=== PATIENT | male | born 1990 | race Asian ===

== ENCOUNTER 2017-03-19 22:54 | Inpatient (IN) | payer OTHER ==
[~2017-03-19] VITALS: Ht 172.7 cm; Wt 73.0 kg
[2017-03-19 23:12] VITALS: Ht 172.7 cm; Wt 73.0 kg
[2017-03-20 03:15] LABS: PLATELET COUNT 167 x10^3mcL (130-400); RED CELL DISTRIBUTION WIDTH 12.4 % (11.5-14.5)
[2017-03-20 03:19] LABS: BASOPHIL % 0 % (0-2)
[2017-03-20 03:25] LABS: CALCIUM 8.4 mg/dL (8.5-10.1); CARBON DIOXIDE 23.5 mmol/L (21-32); CHLORIDE SERUM 102 mmol/L (98-107); GFR1 > 60 mL/min; GLUCOSE SERUM 117 mg/dL (74-106); POTASSIUM SERUM 3.6 mmol/L (3.5-5.1); SODIUM SERUM 136 mmol/L (136-145)
[2017-03-20 03:29] LABS: ALBUMIN 3.8 g/dL (3.4-5.0); ALKALINE PHOSPHATASE 51 U/L (46-116); ALT/SGPT 29 U/L (16-63); AST/SGOT 19 U/L (15-37); BILIRUBIN TOTAL 1.31 mg/dL (0.20-1.00); LIPASE 75 IU/L (73-393); TOTAL PROTEIN, SERUM 7.1 g/dL (6.4-8.2)
[2017-03-20 07:53] LABS: MAGNESIUM 2.1 mg/dL (1.8-2.4); PHOSPHOROUS 1.8 mg/dL (2.5-4.9); T3 TOTAL 0.56 ng/mL
[2017-03-20 07:54] LABS: CHOLESTEROL/HDL RATIO 2.5
[2017-03-20 08:22] LABS: FREE T4 1.04 ng/dL (0.76-1.46); FREE THYROXINE INDEX 2.4 ug/dL (1.4-4.5); T4(THYROXINE) 6.7 ug/dL (4.7-13.3)
[2017-03-20 10:43] VITALS: BP 126/71
[2017-03-20 11:28] VITALS: BP 126/71
[2017-03-20 12:18] VITALS: BP 128/79
[2017-03-20 16:33] VITALS: BP 112/69
[2017-03-20 16:47] LABS: UA SPECIFIC GRAVITY <=1.005 (1.005-1.035); microscopic required? YES; urine erythrocyte 2+ (NEGATIVE)
[2017-03-20 16:57] LABS: AMPHETAMINE QUAL UR NONE DETECTED (NEG <=1000)
[2017-03-20 21:10] VITALS: BP 104/53
[2017-03-21 04:43] VITALS: BP 95/50
[2017-03-21 06:27] LABS: BASOPHIL % 0.1 % (0-2); PLATELET COUNT 149 x10^3mcL (130-400); RED CELL DISTRIBUTION WIDTH 12.4 % (11.5-14.5)
[2017-03-21 06:55] LABS: CALCIUM 8.1 mg/dL (8.5-10.1); CARBON DIOXIDE 26.6 mmol/L (21-32); CHLORIDE SERUM 106 mmol/L (98-107); CREATININE SERUM 0.9 mg/dL (0.7-1.3); GFR1 > 60 mL/min; GLUCOSE SERUM 118 mg/dL (74-106); MAGNESIUM 2.4 mg/dL (1.8-2.4); POTASSIUM SERUM 4.2 mmol/L (3.5-5.1); SODIUM SERUM 141 mmol/L (136-145)
[2017-03-21 08:00] VITALS: BP 104/64
[2017-03-21] MEDS ORDERED: APAP/HYDROCODON1 T13 PO (15:38)
[2017-03-21] MEDS ORDERED: COL100 PO (15:39)
[2017-03-21 16:20] VITALS: BP 104/64
[2017-03-21 16:28] VITALS: BP 104/64
[2017-03-21 17:48] VITALS: BP 109/61
[2017-03-21] MEDS ORDERED: IBUPROFEN800 MG PO (17:55)
== END 2017-03-21 18:28 | disposition home or self-care (01) | DRG 343 ==
LOC: ED 22:54 → DU 03-20 06:54 → MU 03-20 11:05
PROVIDERS: Emergency Medicine; Student in an Organized Health Care Education/Training Program; Surgery
PROC: 0DTJ4ZZ Resection of Appendix, Percutaneous Endoscopic Approach (ICD-10-PCS; principal; 2017-03-20 08:30)
DX: K35.80 Unspecified acute appendicitis (principal); E83.39 Other disorders of phosphorus metabolism; E80.6 Other disorders of bilirubin metabolism; Z53.29 Procedure and treatment not carried out because of patient's decision for other reasons; R31.9 Hematuria, unspecified; E83.51 Hypocalcemia; Z82.49 Family history of ischemic heart disease and other diseases of the circulatory system
CPT/HCPCS: 83880; 84439; 94150; J0330; J1170; J2405; J2543; J2704; J2710; J3010; J3490; J7030; J7120; Q0092; Q9967